=== PATIENT | female | born 1980 ===

== ENCOUNTER 2016-09-18 08:28 | Emergency (ER) | payer MEDICAID ==
[2016-09-18 08:33] VITALS: BP 122/71; PULSE 77; TEMP 98.6; O2SAT 98
[2016-09-18 08:34] VITALS: BMI 29.2
[2016-09-18] MEDS ORDERED: Albuterol-Ipratrop 3 mg / 0.5 (3 ml) UD INH STA (08:51)
--- NOTE | 2016-09-18 08:53 | ED PDOC ---
HPI: CCC, URI, Sore Throat Time Seen by Provider: 09/18/16 08:37 Chief Complaint (Nursing): Cough, Cold, Congestion Chief Complaint (Provider): Cough, Cold, Congestion History Per: Patient History/Exam Limitations: no limitations Onset/Duration Of Symptoms: Days Current Symptoms Are (Timing): Still Present Location Of Pain: Throat, Diffuse Myalgias Sick Contacts (Context): None Associated Symptoms: Fever, Sore Throat, Cough, Sputum, Nasal Congestion Ear Symptoms: Bilateral: None Severity: Mild Additional Complaint(s): Patient is a 36 year old female who presents to ED for evaluation of sore throat with cough and body aches for 5 days. Patient also reports nasal congestion with a fever Tmax 101.7, last dose of Tylenol last night. Denies chest pain, SOB, neck pain or rash. No headaches, nausea, vomit. No abd pian. No vision issues. Able to swallow with pain. PMD: Dr. Van Past Medical History Reviewed: Historical Data, Nursing Documentation, Vital Signs Vital Signs: Last Vital Signs Temp 98.6 F 09/18/16 08:33 Pulse 77 09/18/16 08:33 Resp BP 122/71 09/18/16 08:33 Pulse Ox 98 09/18/16 08:55 - Medical History PMH: Asthma, Back Problems (chronic pain), HTN, Rheumatoid Arthritis (compliant with methotrexate)) Other PMH: thyroid issues - Surgical History Surgical History: No Surg Hx - Family History Family History: States: Unknown Family Hx - Social History Current smoker - smoking cessation education provided: No Alcohol: None Drugs: Denies - Immunization History Hx Tetanus Toxoid Vaccination: Yes - Home Medications Home Medications: Ambulatory Orders Medication Instructions Recorded Albuterol [Proventil] 1 puff INH PRN PRN 11/12/14 Cyclobenzaprine HCl [Flexeril] 1 tab PO DAILY 11/12/14 Methotrexate/Pf [Rasuvo 10 mg/0.2 10 mg PO QWK 11/12/14 ml Autoinj] Montelukast [Singulair] 1 tab PO DAILY 11/12/14 Meclizine [Meclizine*] 25 mg PO Q6 #30 tab 01/31/15 Nitrofurantoin Macrocrystals 100 mg PO BID #14 cap 01/31/15 [Macrobid] Lactose-Reduced Food [Ensure 237 ml PO TID #30 liquid 02/19/16 Original] Lidocaine 2% Viscous 10 ml MM Q4H PRN #1 bottle 02/19/16 Pantoprazole Sodium [Protonix] 40 mg PO DAILY #30 ect 02/19/16 Albuterol Sulfate [Proair Hfa] 0.09 mg IH Q6H PRN #2 inh 09/18/16 Azithromycin [Zithromax] 250 mg PO DAILY 5 Days 09/18/16 Ibuprofen [Motrin] 600 mg PO TID 7 Days 09/18/16 - Allergies Allergies/Adverse Reactions: Allergies Allergy/AdvReac Type Severity Reaction Status Date / Time acetaminophen [From Percocet] Allergy RASH Verified 09/18/16 08:51 iodine Allergy RASH Verified 02/19/16 14:10 oxycodone [From Percocet] Allergy RASH Verified 09/18/16 08:51 Review of Systems Constitutional: Positive for: Fever, Chills. Negative for: Weakness Eyes: Negative for: Pain, Vision Change ENT: Positive for: Nose Discharge, Nose Congestion, Throat Pain. Negative for: Throat Swelling Cardiovascular: Negative for: Chest Pain, Palpitations Respiratory: Positive for: Cough, Wheezing. Negative for: Shortness of Breath Gastrointestinal: Negative for: Nausea, Vomiting, Abdominal Pain, Diarrhea Musculoskeletal: Negative for: Neck Pain Skin: Negative for: Rash Neurological: Negative for: Weakness Physical Exam - Reviewed Nursing Documentation Reviewed: Yes Vital Signs Reviewed: Yes - Physical Exam Appears: Positive for: Non-toxic, No Acute Distress Skin: Positive for: Normal Color, Warm. Negative for: Rash Eye Exam: Positive for: Normal appearance. Negative for: Periorbital swelling, Periorbital tenderness ENT: Positive for: Nasal Congestion, Pharyngeal Erythema (mild), Tonsillar Exudate (bilateral). Negative for: Tonsillar Swelling Neck: Positive for: Normal, Painless ROM, Supple Cardiovascular/Chest: Positive for: Regular Rate, Rhythm. Negative for: Murmur Respiratory: Positive for: Wheezing (mild end expiratory). Negative for: Rhonchi, Respiratory Distress Back: Positive for: Normal Inspection. Negative for: L CVA Tenderness, R CVA Tenderness Extremity: Positive for: Normal ROM. Negative for: Tenderness, Pedal Edema Neurologic/Psych: Positive for: Alert, Oriented. Negative for: Motor/Sensory Deficits - Laboratory Results Interpretation Of Abn Labs: neg - ECG O2 Sat by Pulse Oximetry: 98 (RA) Pulse Ox Interpretation: Normal - Progress ED Course And Treament: 955: Stable. AAOx3. Pain free. Tolerated PO. Will tx with possible pharyngitis considering exudates. Will rx zithromax. Medical Decision Making Medical Decision Making: Time: 849 Initial impression: Viral illness r/o strep Initial plan: -- Duoneb and Motrin PO -- Urine preg -- Flu swab -- Rapid strep Scribe Attestation: Documented by Jaci Duvall acting as a scribe for Bennie Plasencia MD MD Scribe Attestation: All medical record entries made by the Scribe were at my direction and personally dictated by me. I have reviewed the chart and agree that the record accurately reflects my personal performance of the history, physical exam, medical decision making, and the department course for this patient. I have also personally directed, reviewed, and agree with the discharge instructions and disposition. Disposition - Clinical Impression Clinical Impression: Pharyngitis, Bronchitis - Patient ED Disposition Is Patient to be Admitted: No Counseled Patient/Family Regarding: Studies Performed, Diagnosis, Need For Followup, Rx Given - Disposition Referrals: [facility] [Outside] - 09/21/16 Disposition: Routine/Home Disposition Time: 09:56 Condition: STABLE Additional Instructions: Return if not better in 3 days. Prescriptions: Albuterol Sulfate [Proair Hfa] 0.09 mg IH Q6H PRN #2 inh PRN Reason: Wheezing Azithromycin [Zithromax] 250 mg PO DAILY 5 Days Ibuprofen [Motrin] 600 mg PO TID 7 Days
[2016-09-18] MEDS ORDERED: Albuterol-Ipratrop 3 mg / 0.5 (3 ml) UD ONE (09:04)
== END 2016-09-18 10:35 | disposition home or self-care (01) ==
LOC: H.ER 08:28
DX: J40 Bronchitis, not specified as acute or chronic (principal); J02.9 Acute pharyngitis, unspecified; R05 Cough; G89.29 Other chronic pain; I10 Essential (primary) hypertension; J45.909 Unspecified asthma, uncomplicated; M06.9 Rheumatoid arthritis, unspecified

== ENCOUNTER 2016-11-08 16:49 | Emergency (ER) | payer MEDICAID ==
[2016-11-08 16:49] VITALS: BMI 29.2
[2016-11-08 17:18] VITALS: BP 114/67; PULSE 63; RESP 19; TEMP 99.3; O2SAT 98
--- NOTE | 2016-11-08 19:11 | ED PDOC ---
HPI: General Adult Chief Complaint (Nursing): Abnormal Skin Integrity Chief Complaint (Provider): Abnormal Skin Integrity History Per: Patient History/Exam Limitations: no limitations Onset/Duration Of Symptoms: Days ([id number]) Current Symptoms Are (Timing): Still Present Additional Complaint(s): Judy Delarosa is a 36 year old female with a past medical history of hypertension, back problems, asthma, and rheumatoid arthritis who presents to the ED with a chief complaint of itching and lesions on the fingers and hand. Patient reports the itching [place] States itching got worse and spread to the scalp, eyebrows, and pubic hairs. Denies any swelling. Past Medical History Reviewed: Historical Data, Nursing Documentation, Vital Signs Vital Signs: Last Vital Signs Temp 99.3 F 11/08/16 17:15 Pulse 63 11/08/16 17:15 Resp 19 11/08/16 17:15 BP 114/67 11/08/16 17:15 Pulse Ox 98 11/08/16 19:22 - Medical History PMH: Asthma, Back Problems (chronic pain), HTN, Rheumatoid Arthritis (compliant with methotrexate)) - Surgical History Surgical History: No Surg Hx - Family History Family History: States: Unknown Family Hx - Immunization History Hx Tetanus Toxoid Vaccination: Yes - Home Medications Home Medications: Ambulatory Orders Medication Instructions Recorded Albuterol [Proventil] 1 puff INH PRN PRN 11/12/14 Cyclobenzaprine HCl [Flexeril] 1 tab PO DAILY 11/12/14 Methotrexate/Pf [Rasuvo 10 mg/0.2 10 mg PO QWK 11/12/14 ml Autoinj] Montelukast [Singulair] 1 tab PO DAILY 11/12/14 Meclizine [Meclizine*] 25 mg PO Q6 #30 tab 01/31/15 Nitrofurantoin Macrocrystals 100 mg PO BID #14 cap 01/31/15 [Macrobid] Lactose-Reduced Food [Ensure 237 ml PO TID #30 liquid 02/19/16 Original] Lidocaine 2% Viscous 10 ml MM Q4H PRN #1 bottle 02/19/16 Pantoprazole Sodium [Protonix] 40 mg PO DAILY #30 ect 02/19/16 Albuterol Sulfate [Proair Hfa] 0.09 mg IH Q6H PRN #2 inh 09/18/16 Azithromycin [Zithromax] 250 mg PO DAILY 5 Days 09/18/16 Ibuprofen [Motrin] 600 mg PO TID 7 Days 09/18/16 Calamine/Pramoxine [Caladryl] 180 ml TP DAILY #1 bottle 11/08/16 Permethrin 1% Kit [Nix Complete 59 ml TP ONCE #2 bottle 11/08/16 Lice Elimination Kit 1%] Permethrin [Bedding [place]] 142 gm MC DAILY #1 spray 11/08/16 Permethrin [Lice Cream Rinse] 120 ml TP DAILY #1 liquid 11/08/16 - Allergies Allergies/Adverse Reactions: Allergies Allergy/AdvReac Type Severity Reaction Status Date / Time acetaminophen [From Percocet] Allergy RASH Verified 09/18/16 08:51 iodine Allergy RASH Verified 02/19/16 14:10 oxycodone [From Percocet] Allergy RASH Verified 09/18/16 08:51 Review of Systems ROS Statement: Except As Marked, All Systems Reviewed And Found Negative Skin: Positive for: Rash (Red papular rash to the fingers.), Lesions (Developed lesions on the hand and fingers. Non viscicular lesions.), Other (Itching on the hands and fingers) Physical Exam - Reviewed Nursing Documentation Reviewed: Yes Vital Signs Reviewed: Yes - Physical Exam Appears: Positive for: Well, Non-toxic, No Acute Distress Head Exam: Positive for: ATRAUMATIC, NORMAL INSPECTION, NORMOCEPHALIC Skin: Positive for: Rash (red papular lesions noted to webspaces forearms and scalp. ertyhem,a noted to scalp and pubic area. lesions noted to umbilicus. nonpainful ) Eye Exam: Positive for: Normal appearance ENT: Positive for: Normal ENT Inspection Neck: Positive for: Normal Cardiovascular/Chest: Positive for: Regular Rate, Rhythm. Negative for: Murmur , Tachycardia Respiratory: Positive for: Normal Breath Sounds. Negative for: Wheezing, Respiratory Distress Neurologic/Psych: Positive for: Alert, Oriented - ECG O2 Sat by Pulse Oximetry: 98 (RA) Pulse Ox Interpretation: Normal Medical Decision Making Medical Decision Makin: Initial Impression: 36 year old female with abnormal skin integrity on the hands and fingers. Initial Plan: * permethrin cream/lotion/caladry/medrol dose pack * Patient advised to follow up with primary medical doctor. Scribe Attestation: Documented by Adriel Alexander acting as a scribe for Shelley Corbett PA-C. Provider Scribe Attestation: All medical record entries made by the Scribe were at my direction and personally dictated by me. I have reviewed the chart and agree that the record accurately reflects my personal performance of the history, physical exam, medical decision making, and the department course for this patient. I have also personally directed, reviewed, and agree with the discharge instructions and disposition. Disposition - Clinical Impression Clinical Impression: Rash - Patient ED Disposition Is Patient to be Admitted: No Counseled Patient/Family Regarding: Studies Performed, Diagnosis, Need For Followup, Rx Given - Disposition Disposition: Routine/Home Disposition Time: 19:32 Condition: GOOD Prescriptions: Calamine/Pramoxine [Caladryl] 180 ml TP DAILY #1 bottle Permethrin [Lice Cream Rinse] 120 ml TP DAILY #1 liquid Permethrin [Bedding [place]] 142 gm MC DAILY #1 spray Permethrin 1% Kit [Nix Complete Lice Elimination Kit 1%] 59 ml TP ONCE #2 bottle Instructions: Permethrin (On the skin), Pubic Lice (ED), Body Lice (ED)
== END 2016-11-08 19:15 | disposition home or self-care (01) ==
LOC: H.ER 16:49
DX: R21 Rash and other nonspecific skin eruption (principal)

== ENCOUNTER 2017-02-05 18:19 | Emergency (ER) | payer MEDICAID ==
[2017-02-05 18:20] VITALS: BMI 29.2
[2017-02-05 18:30] VITALS: O2SAT 100
--- NOTE | 2017-02-05 19:58 | ED PDOC ---
HPI: General Adult Time Seen by Provider: 02/05/17 18:32 Chief Complaint (Nursing): Palpitations Chief Complaint (Provider): Palpitations History Per: Patient History/Exam Limitations: no limitations Current Symptoms Are (Timing): Still Present Additional Complaint(s): 36 y/o female presents to the emergency department with ongoing palpitations for the last two weeks increasing in frequency associated with lightheadedness, fatigue, and occasional shortness of breath especially with exertion. Reports she has a history of this, has been told that her heart rate does run low at times but has never been told that she had an abnormal rhythm. States 2 years ago she underwent a procedure with a placement of a loop recorder by Dr. Lowe ( finger cobbler). Denies chest pain. PMD: Dr. Isha Lobato MD Past Medical History Reviewed: Historical Data, Nursing Documentation, Vital Signs Vital Signs: Last Vital Signs Temp 99.1 F 02/05/17 22:29 Pulse 78 02/05/17 22:29 Resp 17 02/05/17 22:29 BP 122/76 02/05/17 22:29 Pulse Ox 100 02/05/17 22:30 - Medical History PMH: Asthma, Back Problems (chronic pain), HTN, Rheumatoid Arthritis (compliant with methotrexate)) - Surgical History Other surgeries: Placement of Loop Recorder - Family History Family History: States: Unknown Family Hx - Social History Current smoker - smoking cessation education provided: No Alcohol: Occasional Drugs: Denies - Immunization History Hx Tetanus Toxoid Vaccination: Yes - Home Medications Home Medications: Ambulatory Orders Medication Instructions Recorded Albuterol [Proventil] 1 puff INH PRN PRN 11/12/14 Cyclobenzaprine HCl [Flexeril] 1 tab PO DAILY 11/12/14 Methotrexate/Pf [Rasuvo 10 mg/0.2 10 mg PO QWK 11/12/14 ml Autoinj] Montelukast [Singulair] 1 tab PO DAILY 11/12/14 Meclizine [Meclizine*] 25 mg PO Q6 #30 tab 01/31/15 Nitrofurantoin Macrocrystals 100 mg PO BID #14 cap 01/31/15 [Macrobid] Lactose-Reduced Food [Ensure 237 ml PO TID #30 liquid 02/19/16 Original] Lidocaine 2% Viscous 10 ml MM Q4H PRN #1 bottle 02/19/16 Pantoprazole Sodium [Protonix] 40 mg PO DAILY #30 ect 02/19/16 Albuterol Sulfate [Proair Hfa] 0.09 mg IH Q6H PRN #2 inh 09/18/16 Azithromycin [Zithromax] 250 mg PO DAILY 5 Days tab 09/18/16 Ibuprofen [Motrin] 600 mg PO TID 7 Days tab 09/18/16 Calamine/Pramoxine [Caladryl] 180 ml TP DAILY #1 bottle 11/08/16 Permethrin 1% Kit [Nix Complete 59 ml TP ONCE #2 bottle 11/08/16 Lice Elimination Kit 1%] Permethrin [Bedding [place]] 142 gm MC DAILY #1 spray 11/08/16 Permethrin [Lice Cream Rinse] 120 ml TP DAILY #1 liquid 11/08/16 Multivit/Folic Acid/I 1 tab PO DAILY #100 tab 02/05/17 [ Plus] - Allergies Allergies/Adverse Reactions: Allergies Allergy/AdvReac Type Severity Reaction Status Date / Time acetaminophen [From Percocet] Allergy RASH Verified 09/18/16 08:51 iodine Allergy RASH Verified 02/19/16 14:10 oxycodone [From Percocet] Allergy RASH Verified 09/18/16 08:51 Review of Systems ROS Statement: Except As Marked, All Systems Reviewed And Found Negative (As per HPI otherside negative) Constitutional: Positive for: Other (Fatigue and lightheadedness) Cardiovascular: Positive for: Palpitations. Negative for: Chest Pain Respiratory: Positive for: SOB with Exertion Physical Exam - Reviewed Nursing Documentation Reviewed: Yes Vital Signs Reviewed: Yes - Physical Exam Appears: Positive for: Well, No Acute Distress Head Exam: Positive for: ATRAUMATIC, NORMOCEPHALIC Skin: Positive for: Warm, Dry Eye Exam: Positive for: EOMI, PERRL ENT: Negative for: Pharyngeal Erythema, Tonsillar Exudate Neck: Positive for: Painless ROM, Supple Cardiovascular/Chest: Positive for: Regular Rate, Rhythm, Chest Non Tender. Negative for: Murmur Respiratory: Positive for: Normal Breath Sounds. Negative for: Wheezing Gastrointestinal/Abdominal: Positive for: Soft. Negative for: Tenderness Back: Positive for: Normal Inspection. Negative for: Decreased ROM Extremity: Positive for: Normal ROM. Negative for: Deformity Lymphatic: Negative for: Adenopathy Neurologic/Psych: Positive for: Alert. Negative for: Motor/Sensory Deficits - Laboratory Results Result Diagrams: 02/05/17 20:10 02/05/17 20:10 - ECG ECG Rhythm: Positive for: Normal QRS, Normal ST Segment, Sinus Rhythm (87 bpm) O2 Sat by Pulse Oximetry: 100 (RA) Pulse Ox Interpretation: Normal Medical Decision Making Medical Decision Making: Time: 19:34 Initial Impression: Palpitations. Differential includes electrolyte abnormality , thyroid disorder, anemia, dehydration, arrhythmia. Initial Plan: --EKG --Labs --Urine DIP & Preg --Chest x-ray --Reevaluation Time: 20:14 --Beta-HCG, Quantitative --OB Transvaginal US Time: 2044 [place]-HCG, Quantitative: 8217.90 Time: 2216 --Transvag US FINDINGS: Gestation: Single intrauterine gestational sac with pole. Cardiac activity present. Heart rate is 142 beats per minute. [place]-rump length corresponds to estimated menstrual age of approximately 6 weeks 3 days. Normal yolk sac. Uterus/cervix: Uterus measures 7.2 x 4.0 x 4.6 CM. The cervical os is closed. No myometrial mass. Ovaries: Right ovary measures 2.5 x 1.6 x 2.6 CM. Left ovary measures 2.1 x 1.4 x 2.0 CM. normal blood flow to both ovaries. Free fluid: No free fluid. IMPRESSION: 1. Single intrauterine , with cardiac activity, at approximately 6 weeks 3 days menstrual age. 2. Remainder of findings as above. Time: 22:30 Patient is medically stable, and requires no further treatment in the ED at this time. Patient will be discharged home with Rx for Plus. Counseling was provided and all questions were answered regarding diagnosis and need for [facility]. There is agreement to discharge plan. Return if symptoms persist or worsen. Clinical Impression: and Palpitations Scribe Attestation: Documented by Neetu Elder, acting as a scribe for Deborah Mcleod MD. Provider Scribe Attestation: All medical record entries made by the Scribe were at my direction and personally dictated by me. I have reviewed the chart and agree that the record accurately reflects my personal performance of the history, physical exam, medical decision making, and the department course for this patient. I have also personally directed, reviewed, and agree with the discharge instructions and disposition. Disposition - Clinical Impression Clinical Impression: , Palpitations - Patient ED Disposition Is Patient to be Admitted: No Counseled Patient/Family Regarding: Studies Performed, Diagnosis, Need For Followup, Rx Given - Disposition [facility] (FO[facility] NEXT WEEK. YOU WILL NEED TO CAREFULLY REVIEW YOUR MEDICATIONS WITH YOUR PAN SHOVER SOON YOU CAN.) Disposition: Routine/Home Disposition Time: 22:30 Condition: GOOD Prescriptions: Multivit/Folic Acid/I [ Plus] 1 tab PO DAILY #100 tab Instructions: (ED), First Trimester (ED) Forms: [employer] (Romanian)
[2017-02-05 20:15] LABS: BASO # 0.1 K/uL (0.0-0.2); BASO % 0.9 % (0.0-2.0); EOS # 0.4 K/uL (0.0-0.7); EOS % 4.7 % (0.0-4.0); LYMPH % 32.2 % (20.0-40.0); MEAN CELL VOLUME 78.1 fl (81.0-99.0); MEAN CORPUSCULAR HEMOGLOBIN 24.9 pg (27.0-31.0); MEAN CORPUSCULAR HGB CONC 31.9 g/dL (33.0-37.0); MEAN PLATELET VOLUME 7.5 fl (7.2-11.7); MONO # 0.8 K/uL (0.0-0.8); MONO % 8.2 % (0.0-10.0); NRBC % 0.1 % (0.0-0.0); WHITE BLOOD COUNT 9.3 K/uL (4.8-10.8)
[2017-02-05 20:33] LABS: ALB/GLOB RATIO 1.3 (1.0-2.1); ALKALINE PHOSPHATASE 67 U/L (38-126); ALT/SGPT 32 U/L (9-52); AST/SGOT 26 U/L (14-36); BILIRUBIN,TOTAL 0.3 mg/dl (0.2-1.3); BLOOD UREA NITROGEN 8 mg/dl (7-17); CALCIUM 8.6 mg/dL (8.4-10.2); CARBON DIOXIDE 25 mmol/L (22-30); CHLORIDE 104 mmol/L (98-107); GFR AFRICAN-AMERICAN > 60; GLUCOSE,RANDOM 87 mg/dL (65-105); MAGNESIUM 1.9 MG/DL (1.6-2.3); PHOSPHOROUS 3.5 mg/dl (2.5-4.5); POTASSIUM 4.5 MMOL/L (3.6-5.0); SODIUM 140 mmol/l (132-148); TOTAL PROTEIN 7.6 G/DL (6.3-8.2)
[2017-02-05 20:34] LABS: PARTIAL THROMBOPLASTIN TIME 31.8 Seconds (25.6-37.1)
[2017-02-05 21:03] LABS: THYROID STIMULATING HORMONE 1.56 mIU/ML (0.46-4.68)
--- NOTE | 2017-02-05 22:18 | US ---
EXAM: US , Transvaginal CLINICAL HISTORY: 36 years old, female; Signs and symptoms; Lmp or gestational age (in weeks): 12/22/16; Other: Chest pain/dizziness; ; Additional info: Dizziness TECHNIQUE: Real-time transvaginal obstetrical ultrasound of the maternal pelvis and a first trimester with image documentation. Transvaginal imaging was used for better evaluation of the fetus and adnexa. COMPARISON: No relevant prior studies available. FINDINGS: Gestation: Single intrauterine gestational sac with pole. Cardiac activity present. Heart rate is 142 beats per minute. [place]-rump length corresponds to estimated menstrual age of approximately 6 weeks 3 days. Normal yolk sac. Uterus/cervix: Uterus measures 7.2 x 4.0 x 4.6 CM. The cervical os is closed. No myometrial mass. Ovaries: Right ovary measures 2.5 x 1.6 x 2.6 CM. Left ovary measures 2.1 x 1.4 x 2.0 CM. normal blood flow to both ovaries. Free fluid: No free fluid. IMPRESSION: 1. Single intrauterine , with cardiac activity, at approximately 6 weeks 3 days menstrual age. 2. Remainder of findings as above.
[2017-02-05 22:30] VITALS: BP 122/76; PULSE 78; RESP 17; TEMP 99.1
--- NOTE | 2017-02-06 06:34 | CARD ---
APPROVED REPORT EKG Measurement Heart [id number] <Conclusion> Normal sinus rhythm Possible Left atrial enlargement Borderline ECG
== END 2017-02-05 22:39 | disposition home or self-care (01) ==
LOC: H.ER 18:19
DX: R00.2 Palpitations (principal); O16.1 Unspecified maternal hypertension, first trimester; Z3A.01 Less than 8 weeks gestation of pregnancy; M06.9 Rheumatoid arthritis, unspecified; J45.909 Unspecified asthma, uncomplicated

== ENCOUNTER 2017-02-11 17:24 | Emergency (ER) | payer MEDICAID ==
[2017-02-11 17:24] VITALS: BMI 29.2
[2017-02-11 17:31] VITALS: BP 121/71; PULSE 57; RESP 16; TEMP 98.7; O2SAT 100
[2017-02-11] MEDS ORDERED: Sodium Chloride 0.9% 1,000 ML IV STA (18:19)
--- NOTE | 2017-02-11 18:53 | ED PDOC ---
HPI: Female Pain Time Seen by Provider: 02/11/17 17:37 Chief Complaint (Nursing): Female Genitourinary Chief Complaint (Provider): Female genitourinary History Per: Patient History/Exam Limitations: no limitations Onset/Duration Of Symptoms: Days (x1) Associated Symptoms: Other (vaginal spotting). denies: Fever, Chills Additional Complaint(s): Judy Delarosa is a 36 year old female, with a past medical history of rheumatoid arthritis, asthma and hypertension, who was brought to the emergency department by EMS for lower abdominal pain associated with vaginal spotting after having sexual intercourse yesterday. Patient is 7 weeks , and states she noticed blood on tissue after having urinated several times throughout the day. Patient reports that she's been trying to become for many years. She denies any fever, or chills. No further medical complaints. PMD: Isha Lobato Past Medical History Reviewed: Historical Data, Nursing Documentation, Vital Signs Vital Signs: Last Vital Signs Temp 98.7 F 02/11/17 17:29 Pulse 57 L 02/11/17 17:29 Resp 16 02/11/17 17:29 BP 121/71 02/11/17 17:29 Pulse Ox 100 02/11/17 17:29 - Medical History PMH: Asthma, Back Problems (chronic pain), HTN, Rheumatoid Arthritis (compliant with methotrexate)) - Family History Family History: States: Unknown Family Hx - Social History Current smoker - smoking cessation education provided: No Alcohol: Social Drugs: Denies - Immunization History Hx Tetanus Toxoid Vaccination: Yes - Home Medications Home Medications: Ambulatory Orders Medication Instructions Recorded Albuterol [Proventil] 1 puff INH PRN PRN 11/12/14 Cyclobenzaprine HCl [Flexeril] 1 tab PO DAILY 11/12/14 Methotrexate/Pf [Rasuvo 10 mg/0.2 10 mg PO QWK 11/12/14 ml Autoinj] Montelukast [Singulair] 1 tab PO DAILY 11/12/14 Meclizine [Meclizine*] 25 mg PO Q6 #30 tab 01/31/15 Nitrofurantoin Macrocrystals 100 mg PO BID #14 cap 01/31/15 [Macrobid] Lactose-Reduced Food [Ensure 237 ml PO TID #30 liquid 02/19/16 Original] Lidocaine 2% Viscous 10 ml MM Q4H PRN #1 bottle 02/19/16 Pantoprazole Sodium [Protonix] 40 mg PO DAILY #30 ect 02/19/16 Albuterol Sulfate [Proair Hfa] 0.09 mg IH Q6H PRN #2 inh 09/18/16 Azithromycin [Zithromax] 250 mg PO DAILY 5 Days tab 09/18/16 Ibuprofen [Motrin] 600 mg PO TID 7 Days tab 09/18/16 Calamine/Pramoxine [Caladryl] 180 ml TP DAILY #1 bottle 11/08/16 Permethrin 1% Kit [Nix Complete 59 ml TP ONCE #2 bottle 11/08/16 Lice Elimination Kit 1%] Permethrin [Bedding [place]] 142 gm MC DAILY #1 spray 11/08/16 Permethrin [Lice Cream Rinse] 120 ml TP DAILY #1 liquid 11/08/16 Multivit/Folic Acid/I 1 tab PO DAILY #100 tab 02/05/17 [ Plus] - Allergies Allergies/Adverse Reactions: Allergies Allergy/AdvReac Type Severity Reaction Status Date / Time acetaminophen [From Percocet] Allergy RASH Verified 09/18/16 08:51 iodine Allergy RASH Verified 02/19/16 14:10 oxycodone [From Percocet] Allergy RASH Verified 09/18/16 08:51 Review of Systems ROS Statement: Except As Marked, All Systems Reviewed And Found Negative Constitutional: Negative for: Fever, Chills Gastrointestinal: Positive for: Abdominal Pain (lower) Genitourinary Female: Positive for: Hematuria (vaginal spotting) Physical Exam - Reviewed Nursing Documentation Reviewed: Yes Vital Signs Reviewed: Yes - Physical Exam Appears: Positive for: Well, Non-toxic, No Acute Distress Head Exam: Positive for: ATRAUMATIC, NORMAL INSPECTION, NORMOCEPHALIC Skin: Positive for: Normal Color, Warm, Dry Eye Exam: Positive for: EOMI, Normal appearance, PERRL Neck: Positive for: Normal, Painless ROM, Supple Cardiovascular/Chest: Positive for: Regular Rate, Rhythm. Negative for: Murmur Respiratory: Positive for: Normal Breath Sounds. Negative for: Respiratory Distress Gastrointestinal/Abdominal: Positive for: Normal Exam, Bowel Sounds, Soft, Tenderness (bilateral lower quadrant Suprapubic tenderness) Back: Positive for: Normal Inspection (No midline tenderness). Negative for: L CVA Tenderness, R CVA Tenderness Extremity: Positive for: Normal ROM. Negative for: Pedal Edema, Deformity, Swelling Neurologic/Psych: Positive for: Alert, Oriented - ECG O2 Sat by Pulse Oximetry: 100 (RA) Pulse Ox Interpretation: Normal Medical Decision Making Medical Decision Making: Initial Impression: threatened Initial Plan: --Type and Screen --Beta-HCG, Quantitative --Comp Metabolic Panel --CBC w/ differential --PTT --PT --NS IV 1,000 ml @ 1,000 mls/hr --Urinalysis --reevaluation Scribe Attestation: Documented by Terry Vides, acting as a scribe for Carol Wilkes MD Provider Scribe Attestation: All medical record entries made by the Scribe were at my direction and personally dictated by me. I have reviewed the chart and agree that the record accurately reflects my personal performance of the history, physical exam, medical decision making, and the department course for this patient. I have also personally directed, reviewed, and agree with the discharge instructions and disposition. Disposition - Disposition
[2017-02-11 19:15] LABS: BASO # 0.1 K/uL (0.0-0.2); BASO % 0.9 % (0.0-2.0); EOS # 0.4 K/uL (0.0-0.7); EOS % 3.3 % (0.0-4.0); HEMATOCRIT 40.7 % (34.0-47.0); LYMPH # 3.4 K/uL (1.0-4.3); LYMPH % 31.4 % (20.0-40.0); MEAN CELL VOLUME 77.8 fl (81.0-99.0); MEAN CORPUSCULAR HEMOGLOBIN 24.9 pg (27.0-31.0); MEAN PLATELET VOLUME 7.5 fl (7.2-11.7); MONO # 0.8 K/uL (0.0-0.8); NEUT # 6.2 K/uL (1.8-7.0); NEUT % 57.4 % (50.0-75.0); NRBC % 0.3 % (0.0-0.0); RED CELL DISTRIBUTION WIDTH 13.9 % (11.5-14.5); WHITE BLOOD COUNT 10.9 K/uL (4.8-10.8)
[2017-02-11 19:31] LABS: ALB/GLOB RATIO 1.2 (1.0-2.1); ALKALINE PHOSPHATASE 72 U/L (38-126); ALT/SGPT 33 U/L (9-52); AST/SGOT 40 U/L (14-36); BILIRUBIN,TOTAL 0.6 mg/dl (0.2-1.3); BLOOD UREA NITROGEN 12 mg/dl (7-17); CALCIUM 8.9 mg/dL (8.4-10.2); CARBON DIOXIDE 21 mmol/L (22-30); CHLORIDE 104 mmol/L (98-107); GFR AFRICAN-AMERICAN > 60; GLUCOSE,RANDOM 77 mg/dL (65-105); POTASSIUM 4.4 MMOL/L (3.6-5.0); SODIUM 138 mmol/l (132-148); TOTAL PROTEIN 8.5 G/DL (6.3-8.2)
--- NOTE | 2017-02-11 19:33 | ED PDOC ---
- Laboratory Results Result Diagrams: 02/11/17 19:00 02/11/17 19:16 - ECG O2 Sat by Pulse Oximetry: 100 (RA) Medical Decision Making Medical Decision Makin Patient endorsed to me by Dr. Wilkes. Pending threatened Ab work-up. 2238 Transvaginal US FINDINGS: Gestation: A single intrauterine gestation is identified with a crown-rump length measuring 17 mm, corresponding to an approximate gestational age of 8 weeks and 0 days. The gestational sac is located within the lower uterine body , proximal cervix. No cardiac activity is identified. Placenta/amniotic fluid: Cannot be adequately evaluated due to the early gestational age. Uterus/cervix: Cervix measures 3.3 cm in length, and is open. Ovaries: The right ovary is unremarkable in echogenicity and size measuring 2.7 x 1.6 x 1.9 cm. The left ovary is unremarkable in echogenicity and size measuring 2.2 x 1.7 x 1.7 cm. Free fluid: No free fluid. IMPRESSION: Single intrauterine gestation (located within the lower uterine body, proximal cervix) with an approximate gestational age of 8 weeks and 0 days. No cardiac activity is identified, which represents an interval change from previous ultrasound examination performed 6 days earlier. These findings taken together suggest demise, for which correlation is needed. FINDINGS: Gestation: A single intrauterine gestation is identified with a crown-rump length measuring 17 mm, corresponding to an approximate gestational age of 8 weeks and 0 days. The gestational sac is located within the lower uterine body , proximal cervix. No cardiac activity is identified. Placenta/amniotic fluid: Cannot be adequately evaluated due to the early gestational age. Uterus/cervix: Cervix measures 3.3 cm in length, and is open. Ovaries: The right ovary is unremarkable in echogenicity and size measuring 2.7 x 1.6 x 1.9 cm. The left ovary is unremarkable in echogenicity and size measuring 2.2 x 1.7 x 1.7 cm. Free fluid: No free fluid. IMPRESSION: Single intrauterine gestation (located within the lower uterine body, proximal cervix) with an approximate gestational age of 8 weeks and 0 days. No cardiac activity is identified, which represents an interval change from previous ultrasound examination performed 6 days earlier. These findings taken together suggest demise, for which correlation is needed. 23:09 Discussed results with patient and her family. Patient states that she has an appointment with her civil manager tomorrow and will follow up them. Patient is stable for discharge home. Scribe Attestation: Documented by Terry Vides and Mildred Lamas, acting as a scribe for Mckinley Weiss MD. Provider Scribe Attestation: All medical record entries made by the Scribe were at my direction and personally dictated by me. I have reviewed the chart and agree that the record accurately reflects my personal performance of the history, physical exam, medical decision making, and the department course for this patient. I have also personally directed, reviewed, and agree with the discharge instructions and disposition. Disposition Counseled Patient/Family Regarding: Studies Performed, Diagnosis, Need For Followup - Clinical Impression Clinical Impression: Incomplete - POA Present On Arrival: None - Disposition Disposition: Routine/Home Disposition Time: 23:09 Condition: STABLE Additional Instructions: follow up with your civil manager tomorrow return to the ED with any worsening or concerning symptoms Instructions: Spontaneous Miscarriage (ED) Forms: [employer] (Monegasque)
[2017-02-11 19:37] LABS: URINE BILIRUBIN NEGATIVE (NEGATIVE); URINE BLOOD SMALL (NEGATIVE); URINE COLOR STRAW (YELLOW); URINE GLUCOSE (UA) NEG (Normal); URINE KETONE NEGATIVE (NEGATIVE); URINE LEUKOCYTE ESTERASE NEG Leu/uL (Negative); URINE PROTEIN NEGATIVE (NEGATIVE); URINE UROBILINOGEN 0.2-1.0 mg/dL (0.2-1.0); WBC URINE 1 /hpf (0-5)
[2017-02-11 19:44] LABS: RBC URINE 4 /hpf (0-3)
[2017-02-11 19:49] LABS: PARTIAL THROMBOPLASTIN TIME 29.1 Seconds (25.6-37.1)
--- NOTE | 2017-02-11 22:40 | US ---
EXAM: US , Transvaginal CLINICAL HISTORY: 36 years old, female; Signs and symptoms; Lmp or gestational age (in weeks): Lmp 12/10/16; Other: Cramping staining; ; Additional info: Possible TECHNIQUE: Real-time transvaginal obstetrical ultrasound of the maternal pelvis and a first trimester with image documentation. Transvaginal imaging was used for better evaluation of the fetus and adnexa. COMPARISON: US - OB TRANSVAGINAL 2017-02-05 21:24 FINDINGS: Gestation: A single intrauterine gestation is identified with a crown-rump length measuring 17 mm, corresponding to an approximate gestational age of 8 weeks and 0 days. The gestational sac is located within the lower uterine body, proximal cervix. No cardiac activity is identified. Placenta/amniotic fluid: Cannot be adequately evaluated due to the early gestational age. Uterus/cervix: Cervix measures 3.3 cm in length, and is open. Ovaries: The right ovary is unremarkable in echogenicity and size measuring 2.7 x 1.6 x 1.9 cm. The left ovary is unremarkable in echogenicity and size measuring 2.2 x 1.7 x 1.7 cm. Free fluid: No free fluid. IMPRESSION: Single intrauterine gestation (located within the lower uterine body, proximal cervix) with an approximate gestational age of 8 weeks and 0 days. No cardiac activity is identified, which represents an interval change from previous ultrasound examination performed 6 days earlier. These findings taken together suggest demise, for which correlation is needed.
== END 2017-02-11 23:10 | disposition home or self-care (01) ==
LOC: H.ER 17:24
DX: O03.4 Incomplete spontaneous abortion without complication (principal); Z3A.08 8 weeks gestation of pregnancy
CPT/HCPCS: 76817; 80053; 81003; 84702; 85025; 85610; 85730; 86850; 86900; 96360; 99282; J7040

== ENCOUNTER 2017-08-11 03:30 | Emergency (ER) | payer MEDICAID ==
[2017-08-11 03:31] VITALS: BMI 29.2
--- NOTE | 2017-08-11 04:22 | ED PDOC ---
HPI: Chest Pain Time Seen by Provider: 08/11/17 03:49 Chief Complaint (Nursing): Chest Pain Chief Complaint (Provider): Chest Pain History Per: Patient History/Exam Limitations: no limitations Onset/Duration Of Symptoms: Hrs (x1), Sudden Onset Current Symptoms Are (Timing): Still Present Additional Complaint(s): 37 year old female with medical history of hypertension and rheumatoid arthritis , presents to the emergency department with sudden onset of chest pain radiating to back near ribs occurring 1 hour prior to arrival. Patient stated she was awoken from sleep by a frontal headache, which resolved on its own after a few minutes, when the chest pain began. She denies any nausea, vomiting or diaphoresis. PMD: none provided Past Medical History Reviewed: Historical Data, Nursing Documentation, Vital Signs Vital Signs: Last Vital Signs Temp 98.4 F 08/11/17 03:45 Pulse 62 08/11/17 05:13 Resp 16 08/11/17 03:45 BP 155/94 H 08/11/17 03:45 Pulse Ox 100 08/11/17 06:12 - Medical History PMH: Asthma, Back Problems (chronic pain), HTN, Rheumatoid Arthritis (compliant with methotrexate)) - Surgical History Surgical History: Denies: No Surg Hx - Family History Family History: States: Unknown Family Hx - Social History Current smoker - smoking cessation education provided: No Alcohol: Occasional Drugs: Denies - Immunization History Hx Tetanus Toxoid Vaccination: Yes - Home Medications Home Medications: Ambulatory Orders Medication Instructions Recorded Albuterol [Proventil] 1 puff INH PRN PRN 11/12/14 Cyclobenzaprine HCl [Flexeril] 1 tab PO DAILY 11/12/14 Methotrexate/Pf [Rasuvo 10 mg/0.2 10 mg PO QWK 11/12/14 ml Autoinj] Montelukast [Singulair] 1 tab PO DAILY 11/12/14 Meclizine [Meclizine*] 25 mg PO Q6 #30 tab 01/31/15 Nitrofurantoin Macrocrystals 100 mg PO BID #14 cap 01/31/15 [Macrobid] Lactose-Reduced Food [Ensure 237 ml PO TID #30 liquid 02/19/16 Original] Lidocaine 2% Viscous 10 ml MM Q4H PRN #1 bottle 02/19/16 Pantoprazole Sodium [Protonix] 40 mg PO DAILY #30 ect 02/19/16 Albuterol Sulfate [Proair Hfa] 0.09 mg IH Q6H PRN #2 inh 09/18/16 Azithromycin [Zithromax] 250 mg PO DAILY 5 Days tab 09/18/16 Ibuprofen [Motrin] 600 mg PO TID 7 Days tab 09/18/16 Calamine/Pramoxine [Caladryl] 180 ml TP DAILY #1 bottle 11/08/16 Permethrin 1% Kit [Nix Complete 59 ml TP ONCE #2 bottle 11/08/16 Lice Elimination Kit 1%] Permethrin [Bedding [place]] 142 gm MC DAILY #1 spray 11/08/16 Permethrin [Lice Cream Rinse] 120 ml TP DAILY #1 liquid 11/08/16 Multivit/Folic Acid/I 1 tab PO DAILY #100 tab 02/05/17 [ Plus] - Allergies Allergies/Adverse Reactions: Allergies Allergy/AdvReac Type Severity Reaction Status Date / Time iodine Allergy RASH Verified 08/11/17 03:44 oxycodone [From Percocet] Allergy RASH Verified 08/11/17 03:44 Review of Systems ROS Statement: Except As Marked, All Systems Reviewed And Found Negative Constitutional: Negative for: Sweats Cardiovascular: Positive for: Chest Pain (ribs) Gastrointestinal: Negative for: Nausea, Vomiting Musculoskeletal: Positive for: Back Pain Neurological: Positive for: Headache (frontal - resolved) Physical Exam - Reviewed Nursing Documentation Reviewed: Yes Vital Signs Reviewed: Yes - Physical Exam Appears: Positive for: Non-toxic, No Acute Distress Head Exam: Positive for: ATRAUMATIC, NORMAL INSPECTION, NORMOCEPHALIC Neck: Positive for: Normal Cardiovascular/Chest: Positive for: Regular Rate, Rhythm, Other (anterior chest tenderness, subcoastal region ). Negative for: Chest Non Tender Respiratory: Positive for: Normal Breath Sounds. Negative for: Decreased Breath Sounds, Wheezing, Respiratory Distress Gastrointestinal/Abdominal: Positive for: Normal Exam, Soft. Negative for: Tenderness Back: Positive for: Normal Inspection. Negative for: L CVA Tenderness, R CVA Tenderness Extremity: Positive for: Normal ROM (upper/lower). Negative for: Pedal Edema ( bilateral) Neurologic/Psych: Positive for: Alert, Oriented. Negative for: Motor/Sensory Deficits - Laboratory Results Result Diagrams: 08/11/17 04:45 08/11/17 04:45 - ECG O2 Sat by Pulse Oximetry: 100 (RA) Pulse Ox Interpretation: Normal Medical Decision Making Medical Decision Making: Initial Impression: 37 y/o female with chest pain in setting of known rheumatoid disease Initial Plan: * EKG * CMP * Troponin I * Urine * Urine dipstick * CBC * ESR * CXR * Toradol 15mg IV Time: 610 --CXR: no active disease noted. Time: 0700 --Patient is endorsed to Dr. Mckinley Weiss. Pending lab results and re- evaluation. Scribe Attestation: Documented by Arpita Brambila, acting as a scribe for Nir Swan MD. Provider Scribe Attestation: All medical record entries made by the Scribe were at my direction and personally dictated by me. I have reviewed the chart and agree that the record accurately reflects my personal performance of the history, physical exam, medical decision making, and the department course for this patient. I have also personally directed, reviewed, and agree with the discharge instructions and disposition. Disposition - Clinical Impression Clinical Impression: Chest pain - Disposition Referrals: Isha Lobato MD [Primary Care Provider] - Disposition: Transfer of Care Disposition Time: 07:00 Condition: STABLE Forms: [employer] (Hong Konger) Patient Signed Over To: Mckinley Weiss
[2017-08-11 05:15] LABS: ALB/GLOB RATIO 1.1 (1.0-2.1); ALBUMIN 4.2 g/dL (3.5-5.0); ALT/SGPT 43 U/L (9-52); AST/SGOT 57 U/L (14-36); BLOOD UREA NITROGEN 20 mg/dl (7-17); CALCIUM 9.3 mg/dL (8.4-10.2); GFR AFRICAN-AMERICAN > 60; GFR NON-AFRICAN AMERICAN > 60
[2017-08-11 05:58] LABS: BASO # 0.1 K/uL (0.0-0.2); BASO % 0.5 % (0.0-2.0); EOS # 0.3 K/uL (0.0-0.7); EOS % 3.5 % (0.0-4.0); HEMOGLOBIN 12.7 g/dL (12.0-16.0); MEAN CELL VOLUME 77.4 fl (81.0-99.0); MEAN CORPUSCULAR HEMOGLOBIN 25.3 pg (27.0-31.0); MEAN CORPUSCULAR HGB CONC 32.7 g/dL (33.0-37.0); MONO # 0.7 K/uL (0.0-0.8); MONO % 7.5 % (0.0-10.0); NEUT # 5.6 K/uL (1.8-7.0); NEUT % 57.5 % (50.0-75.0); NRBC % 0.1 % (0.0-0.0); RBC 5.03 Mil/uL (3.80-5.20); RED CELL DISTRIBUTION WIDTH 14.3 % (11.5-14.5); WHITE BLOOD COUNT 9.7 K/uL (4.8-10.8)
--- NOTE | 2017-08-11 07:32 | ED PDOC ---
- Laboratory Results Result Diagrams: 08/11/17 04:45 08/11/17 04:45 - ECG O2 Sat by Pulse Oximetry: 100 (RA) Pulse Ox Interpretation: Normal Medical Decision Making Medical Decision Making: Time: 7:00 --Patient signed out to me by Dr. Nir Swan pending ESR Time: 8:42 --Sed rate is 26; upper limit is 20. Everything else normal. --Repeat Troponin --Tylenol Time: 11:17 --Troponin is normal. Pt feels improved at this time. Patient discharged with instruction to follow up with PMD. Clinical Impression: Atypical Chest Pain Clinical Condition: Stable Scribe Attestation: Documented by Jean Claude Horton, acting as a scribe for Mckinley Weiss MD Provider Scribe Attestation: All medical record entries made by the Scribe were at my direction and personally dictated by me. I have reviewed the chart and agree that the record accurately reflects my personal performance of the history, physical exam, medical decision making, and the department course for this patient. I have also personally directed, reviewed, and agree with the discharge instructions and disposition. Disposition Counseled Patient/Family Regarding: Studies Performed, Diagnosis, Need For Followup - Clinical Impression Clinical Impression: Chest pain, Atypical chest pain - POA Present On Arrival: None - Disposition Referrals: Isha Lobato MD [Primary Care Provider] - Disposition: Routine/Home Disposition Time: 10:00 Condition: IMPROVED Additional Instructions: follow up with your primary doctor in 1-2 days return to the ED with any worsening or concerning symptoms Instructions: Chest Pain That Is Not Caused by the Heart (DC) Forms: [employer] (Stateless)
[2017-08-11 08:10] VITALS: RESP 14
--- NOTE | 2017-08-11 08:20 | CARD ---
APPROVED REPORT EKG Measurement Heart [id number] <Conclusion> Normal sinus rhythm Possible Left atrial enlargement Borderline ECG
[2017-08-11 08:43] VITALS: O2SAT 100
--- NOTE | 2017-08-11 10:11 | RAD ---
HISTORY: Chest pain COMPARISON: No prior. FINDINGS: LUNGS: The lungs are clear. PLEURA: No significant pleural effusion identified, no pneumothorax apparent. CARDIOVASCULAR: Normal. OSSEOUS STRUCTURES: No significant abnormalities. VISUALIZED UPPER ABDOMEN: Normal. OTHER FINDINGS: None. IMPRESSION: No active pulmonary disease.
[2017-08-11 11:38] VITALS: BP 143/75; PULSE 60; TEMP 98
== END 2017-08-11 11:44 | disposition home or self-care (01) ==
LOC: H.ER 03:30
DX: R07.89 Other chest pain (principal); G89.29 Other chronic pain; I10 Essential (primary) hypertension; M06.9 Rheumatoid arthritis, unspecified; J45.909 Unspecified asthma, uncomplicated; Z88.5 Allergy status to narcotic agent
CPT/HCPCS: 71045; 80053; 84484; 85025; 85651; 93005; 96374; 99284; J1885

== ENCOUNTER 2018-05-09 10:56 | Emergency (ER) | payer MEDICAID ==
[2018-05-09 10:56] VITALS: BMI 29.2
[2018-05-09 11:00] VITALS: PULSE 68; TEMP 98.4; O2SAT 100
--- NOTE | 2018-05-09 12:11 | ED PDOC ---
HPI: Female Pain Time Seen by Provider: 05/09/18 11:20 Chief Complaint (Nursing): Female Genitourinary Chief Complaint (Provider): pelvic pain, dysuria History Per: Patient, Family (significant other) History/Exam Limitations: no limitations Current Symptoms Are (Timing): Still Present Quality Of Discomfort: Cramping Associated Symptoms: Back Pain, Urinary Symptoms Additional Complaint(s): 38 y/o female with a PMHx thyroid disorder and presents to the ED for evaluation of low pelvic pain and cramping, onset three to four days ago. P atient reports pain is associated with dysuria, urinary frequency and back discomfort. Of note, patient states she was told many years ago that she cannot conceive. However, patient reports she has had one prior natural conception with spontaneous at 9 weeks. Otherwise, patient denies vaginal bleeding, dizziness, weakness, flank pain, vomiting and diarrhea. PMD: no provider LNMP: 04/02/2018 Abnormal Vaginal Bleeding: No Last Menstral Period: 04/02/2018 : 1 Para: 0 Past Medical History Reviewed: Historical Data, Nursing Documentation, Vital Signs Vital Signs: Last Vital Signs Temp 98.4 F 05/09/18 11:00 Pulse 68 05/09/18 11:00 Resp 17 05/09/18 11:00 BP 207/65 H 05/09/18 11:00 Pulse Ox 100 05/09/18 11:00 - Medical History PMH: Asthma, Back Problems (chronic pain), HTN, Hypothyroidism, Rheumatoid Arthritis (compliant with methotrexate)) - Surgical History Surgical History: No Surg Hx - Family History Family History: States: Unknown Family Hx - Immunization History Hx Tetanus Toxoid Vaccination: Yes - Home Medications Home Medications: Ambulatory Orders Medication Instructions Recorded Albuterol [Proventil] 1 puff INH PRN PRN 11/12/14 Cyclobenzaprine HCl [Flexeril] 1 tab PO DAILY 11/12/14 Methotrexate/Pf [Rasuvo 10 mg/0.2 10 mg PO QWK 11/12/14 ml Autoinj] Montelukast [Singulair] 1 tab PO DAILY 11/12/14 Meclizine [Meclizine*] 25 mg PO Q6 #30 tab 01/31/15 Nitrofurantoin Macrocrystals 100 mg PO BID #14 cap 01/31/15 [Macrobid] Lactose-Reduced Food [Ensure 237 ml PO TID #30 liquid 02/19/16 Original] Lidocaine 2% Viscous 10 ml MM Q4H PRN #1 bottle 02/19/16 Pantoprazole Sodium [Protonix] 40 mg PO DAILY #30 ect 02/19/16 Albuterol Sulfate [Proair Hfa] 0.09 mg IH Q6H PRN #2 inh 09/18/16 Azithromycin [Zithromax] 250 mg PO DAILY 5 Days tab 09/18/16 Ibuprofen [Motrin] 600 mg PO TID 7 Days tab 09/18/16 Calamine/Pramoxine [Caladryl] 180 ml TP DAILY #1 bottle 11/08/16 Permethrin 1% Kit [Nix Complete 59 ml TP ONCE #2 bottle 11/08/16 Lice Elimination Kit 1%] Permethrin [Bedding [place]] 142 gm MC DAILY #1 spray 11/08/16 Permethrin [Lice Cream Rinse] 120 ml TP DAILY #1 liquid 11/08/16 Multivit/Folic Acid/I 1 tab PO DAILY #100 tab 02/05/17 [ Plus] Cephalexin [cephalexin] 500 mg PO TID #15 cap 05/09/18 - Allergies Allergies/Adverse Reactions: Allergies Allergy/AdvReac Type Severity Reaction Status Date / Time iodine Allergy RASH Verified 05/09/18 11:05 oxycodone [From Percocet] Allergy RASH Verified 05/09/18 11:05 Review of Systems ROS Statement: Except As Marked, All Systems Reviewed And Found Negative Gastrointestinal: Negative for: Vomiting, Diarrhea Genitourinary Female: Positive for: Dysuria, Frequency, Pelvic Pain. Negative for: Vaginal Bleeding Musculoskeletal: Positive for: Back Pain (back discomfort but no flank pain) Neurological: Negative for: Weakness, Dizziness Physical Exam - Reviewed Nursing Documentation Reviewed: Yes Vital Signs Reviewed: Yes - Physical Exam Appears: Positive for: No Acute Distress Head Exam: Positive for: ATRAUMATIC, NORMOCEPHALIC Skin: Positive for: Normal Color, Warm, Dry Eye Exam: Positive for: Normal appearance, EOMI, PERRL Neck: Positive for: Normal, Painless ROM, Supple Cardiovascular/Chest: Positive for: Regular Rate, Rhythm. Negative for: Murmur Respiratory: Positive for: Normal Breath Sounds. Negative for: Respiratory Distress Gastrointestinal/Abdominal: Positive for: Tenderness (lower abdominal tenderness (left > right)) Back: Positive for: Normal Inspection. Negative for: L CVA Tenderness, R CVA Tenderness, Vertebral Tenderness Extremity: Positive for: Normal ROM. Negative for: Pedal Edema, Deformity Neurologic/Psych: Positive for: Alert, Oriented. Negative for: Motor/Sensory Deficits - Laboratory Results Result Diagrams: 05/09/18 12:39 05/09/18 12:39 - ECG O2 Sat by Pulse Oximetry: 100 (RA) Pulse Ox Interpretation: Normal Medical Decision Making Medical Decision Making: Time: 1127 Plan: -- Beta-HCG, Quantitative -- CMP -- Urine Culture -- Urinalysis -- US OB Transvaginal Time: 1245 Plan: -- TSH Time: 1309 Plan: -- Type and Screen -- Pregancy test is positive. Patint updated on findings. -- Blood work and US reviewed. Discussed with Dr. Hackett, strategic sourcing consultant OB who recommended 24-48 hour re-evaluation for trending Beta-quant. Will prescribe Keflex to treat UTI. Patient given specific indications for return. Scribe Attestation: Documented by Hailee Orellana, acting as a scribe for Jose Cullen DO. Provider Scribe Attestation: All medical record entries made by the Scribe were at my direction and personally dictated by me. I have reviewed the chart and agree that the record accurately reflects my personal performance of the history, physical exam, medical decision making, and the department course for this patient. I have also personally directed, reviewed, and agree with the discharge instructions and disposition. Disposition - Clinical Impression Clinical Impression: Threatened , UTI (urinary tract infection) - Patient ED Disposition Is Patient to be Admitted: No Counseled Patient/Family Regarding: Studies Performed, Diagnosis, Need For Followup, Rx Given - Disposition [facility]errals[facility]] Disposition: Routine/Home Disposition Time: 15:45 Condition: STABLE Additional Instructions: Return to ER in 24-48hours for repeat ultrasound, bloodwork and evaluation. Return to ER earlier for any worse pain, bleeding, weakness or any concern. Prescriptions: Cephalexin [cephalexin] 500 mg PO TID #15 cap Instructions: Threatened Miscarriage, Urinary Tract Infection, Adult (DC) Forms: [employer] (Qatari)
--- NOTE | 2018-05-09 12:29 | US ---
Date of service: 05/09/2018 PROCEDURE: OB Pelvic Ultrasound HISTORY: pelvic pain COMPARISON: None available. FINDINGS: UTERUS: There is a 5 mm anechoic structure in the superior endometrium. Uterus measures 9.0 x 6.0 x 4.8 cm. No mass CERVIX: Long and closed. No cervical abnormality seen. RIGHT OVARY: Measures 2.6 x 2.3 x 1.7 cm. No mass. Normal flow. LEFT OVARY: Measures 3.9 x 2.4 x 2.3 cm. No mass. Normal flow. There is a 9 x 9 x 8 mm corpus luteum cyst. There is a 8 x 10 x 7 mm hypoechoic lesion with central increased echoes in the left paraovarian region FREE FLUID: There is small amount of free fluid in the cul de of indeterminate etiology and significance. OTHER FINDINGS: None. IMPRESSION: 5 mm anechoic structure in the superior endometrium may represent early gestational sac too small to characterize gestational age. Clinical and ultrasound follow-up is recommended to assess viability. 10 mm nodule with central echogenicity in the left paraovarian region could represent a lymph node however is not completely characterized on this examination. This lesion could be reassessed on short-term follow-up ultrasound.
[2018-05-09 12:55] LABS: SQUAMOUS EPITHIAL 5 /hpf (0-5); URINE BACTERIA RARE (<OCC); URINE BILIRUBIN NEGATIVE (NEGATIVE); URINE BLOOD SMALL (NEGATIVE); URINE CLARITY SLIGHTY-CLOUDY (Clear); URINE COLOR YELLOW (YELLOW); URINE GLUCOSE (UA) NEG (NEGATIVE); URINE LEUKOCYTE ESTERASE SMALL Leu/uL (Negative); URINE PROTEIN NEGATIVE (NEGATIVE); URINE UROBILINOGEN 0.2-1.0 mg/dL (0.2-1.0)
[2018-05-09 13:00] LABS: BASO # 0.1 K/uL (0.0-0.2); EOS # 0.2 K/uL (0.0-0.7); EOS % 2.6 % (0.0-4.0); HEMOGLOBIN 13.5 g/dL (12.0-16.0); LYMPH # 2.6 K/uL (1.0-4.3); LYMPH % 29.8 % (20.0-40.0); MEAN CELL VOLUME 78.8 fl (81.0-99.0); MEAN CORPUSCULAR HEMOGLOBIN 25.9 pg (27.0-31.0); MEAN CORPUSCULAR HGB CONC 32.8 g/dL (33.0-37.0); MEAN PLATELET VOLUME 7.4 fl (7.2-11.7); MONO # 0.6 K/uL (0.0-0.8); MONO % 6.7 % (0.0-10.0); NEUT # 5.2 K/uL (1.8-7.0); NEUT % 59.9 % (50.0-75.0); NRBC % 0.1 % (0.0-0.0); RBC 5.21 Mil/uL (3.80-5.20); RED CELL DISTRIBUTION WIDTH 13.5 % (11.5-14.5); WHITE BLOOD COUNT 8.8 K/uL (4.8-10.8)
[2018-05-09 13:12] LABS: ALB/GLOB RATIO 1.2 (1.0-2.1); ALBUMIN 4.3 g/dL (3.5-5.0); ALT/SGPT 26 U/L (9-52); AST/SGOT 27 U/L (14-36); BLOOD UREA NITROGEN 9 mg/dl (7-17); CALCIUM 9.3 mg/dL (8.4-10.2); GFR NON-AFRICAN AMERICAN > 60
[2018-05-09 13:34] VITALS: BP 107/67; RESP 18
== END 2018-05-09 15:45 | disposition home or self-care (01) ==
LOC: H.ER 10:56
DX: N39.0 Urinary tract infection, site not specified (principal); O20.0 Threatened abortion; I10 Essential (primary) hypertension; G89.29 Other chronic pain; J45.909 Unspecified asthma, uncomplicated; M06.9 Rheumatoid arthritis, unspecified; Z88.5 Allergy status to narcotic agent; E03.9 Hypothyroidism, unspecified

== ENCOUNTER 2018-05-11 10:26 | Emergency (ER) | payer MEDICAID ==
[2018-05-11 10:26] VITALS: BMI 29.2
[2018-05-11 10:31] VITALS: RESP 18; O2SAT 100
--- NOTE | 2018-05-11 10:49 | ED PDOC ---
HPI: Female Pain Time Seen by Provider: 05/11/18 10:43 History Per: Patient Onset/Duration Of Symptoms: Days (2) Current Symptoms Are (Timing): Still Present Severity: Mild Quality Of Discomfort: Cramping Additional Complaint(s): Seen 2 days ago for lowe abd cramping, no vaginal bleeding. Beta HCG 6700 2 days ago with US showing possible intrauterine as well as possible ectopic. For reeval today. Denie sbleeding but continues to have lower abd cramping. Abnormal Vaginal Bleeding: No Past Medical History Vital Signs: Last Vital Signs Temp 99.1 F 05/11/18 10:30 Pulse 67 05/11/18 10:30 Resp 18 05/11/18 10:30 BP 123/76 05/11/18 10:30 Pulse Ox 100 05/11/18 10:30 - Medical History PMH: Asthma, Back Problems (chronic pain), HTN, Hypothyroidism, Rheumatoid Arthritis (compliant with methotrexate)) - Family History Family History: States: Unknown Family Hx - Immunization History Hx Tetanus Toxoid Vaccination: Yes - Home Medications Home Medications: Ambulatory Orders Medication Instructions Recorded Albuterol [Proventil] 1 puff INH PRN PRN 11/12/14 Cyclobenzaprine HCl [Flexeril] 1 tab PO DAILY 11/12/14 Methotrexate/Pf [Rasuvo 10 mg/0.2 10 mg PO QWK 11/12/14 ml Autoinj] Montelukast [Singulair] 1 tab PO DAILY 11/12/14 Meclizine [Meclizine*] 25 mg PO Q6 #30 tab 01/31/15 Nitrofurantoin Macrocrystals 100 mg PO BID #14 cap 01/31/15 [Macrobid] Lactose-Reduced Food [Ensure 237 ml PO TID #30 liquid 02/19/16 Original] Lidocaine 2% Viscous 10 ml MM Q4H PRN #1 bottle 02/19/16 Pantoprazole Sodium [Protonix] 40 mg PO DAILY #30 ect 02/19/16 Albuterol Sulfate [Proair Hfa] 0.09 mg IH Q6H PRN #2 inh 09/18/16 Azithromycin [Zithromax] 250 mg PO DAILY 5 Days tab 09/18/16 Ibuprofen [Motrin] 600 mg PO TID 7 Days tab 09/18/16 Calamine/Pramoxine [Caladryl] 180 ml TP DAILY #1 bottle 11/08/16 Permethrin 1% Kit [Nix Complete 59 ml TP ONCE #2 bottle 11/08/16 Lice Elimination Kit 1%] Permethrin [Bedding [place]] 142 gm MC DAILY #1 spray 11/08/16 Permethrin [Lice Cream Rinse] 120 ml TP DAILY #1 liquid 11/08/16 Multivit/Folic Acid/I 1 tab PO DAILY #100 tab 02/05/17 [ Plus] Cephalexin [cephalexin] 500 mg PO TID #15 cap 05/09/18 - Allergies Allergies/Adverse Reactions: Allergies Allergy/AdvReac Type Severity Reaction Status Date / Time iodine Allergy RASH Verified 05/11/18 10:51 oxycodone [From Percocet] Allergy RASH Verified 05/11/18 10:51 Review of Systems Gastrointestinal: Positive for: Abdominal Pain Genitourinary Female: Negative for: Vaginal Bleeding Physical Exam - Physical Exam Appears: Positive for: Non-toxic, No Acute Distress Skin: Positive for: Normal Color Gastrointestinal/Abdominal: Positive for: Bowel Sounds, Soft. Negative for: Tenderness - ECG O2 Sat by Pulse Oximetry: 100 Medical Decision Making Medical Decision Making: US read as early IUP with well formed yolk and gestational sac. Will dc home as early IUP and outpt f/u Discussed with Dr. Cadet Disposition - Clinical Impression Clinical Impression: Abdominal pain during - Patient ED Disposition Is Patient to be Admitted: No Counseled Patient/Family Regarding: Studies Performed, Diagnosis, Need For Followup - Disposition [facility]errals: [facility]] Disposition: Routine/Home Disposition Time: 13:17 Condition: FAIR Instructions: Stomach Pain in Early
--- NOTE | 2018-05-11 12:27 | US ---
Date of service: 05/11/2018 PROCEDURE: Pelvic ultrasound HISTORY: r/o ectopic COMPARISON: None TECHNIQUE: Standard protocol for this study/examination. FINDINGS: LMP: 04/02/2018 Prior examinations from the current : None TECHNIQUE: Real-time 2D imaging, duplex and color Doppler. No visible pole Measurements: Gestational age 5 weeks 1 day based on gestational sac measurement 1.07 cm Gestational age derived from LMP: 5 weeks 4 days ARTEMIO based on LMP: 01/07/2019 ARTEMIO based on biometry: 01/10/2019 Gestational concordance documented Yolk sac identified Cervix: No Cervical abnormalities: Negative examination for cervical dilatation or effacement. Closed cervix measuring 413 cm Subchorionic hemorrhage: None ADNEXA: Right: 2.2 x 1.9 x 2.9 cm. Normal Doppler arterial waveform documented. Left: 2.1 x 2.8 x 3.4 cm. Complex perhaps cyst adjacent to left adnexal region 8 x 8 x 7 mm. Cystic structure likely corpus luteum cyst 1.8 x 1.6 x 1.9 cm normal Doppler arterial waveform documented Fluid in the cul-de-sac: Small volume pelvic ascites. UTERUS: Measures 5 x 5.7 x 8.9 cm. Normal in size and appearance. No fibroid or other mass lesion seen. IMPRESSION: Early intrauterine gestation. Well-formed gestational sac and yolk sac identified. No .
[2018-05-11 13:23] VITALS: BP 126/74; PULSE 74; TEMP 98.9
== END 2018-05-11 13:20 | disposition home or self-care (01) ==
LOC: H.ER 10:26
DX: O26.891 Other specified pregnancy related conditions, first trimester (principal); Z3A.01 Less than 8 weeks gestation of pregnancy; R10.30 Lower abdominal pain, unspecified